=== PATIENT | female | born 1955 | race African-American/Black ===

== ENCOUNTER 2017-09-16 09:25 | Inpatient (IN) ==
[2017-09-16] MEDS ORDERED: CeFAZolin Syr 3,000MG/30 ML 3,000 MG/30 ML SYRINGE IVPB ONE (09:42)
[2017-09-16] MEDS ORDERED: Ringers Solution, Lactated 1,000 ML IVC SCH ×2 (09:45→11:30)
--- NOTE | 2017-09-16 10:02 | Anesthesia Evaluation PreOp ---
Date of Encounter: 09/16/17 Time of Encounter: 10:00 - Past History Planned Operation: SPRING Cardiac History: Denies any Significant Hx Pulmonary History: Denies Any Significant HX HEAD BONE GRINDER History: Denies Any Significant HX Other Medical History: Denies Any Significant HX Anesthesia History: No Prior Anesthetic Complications, Past Anesthesia Alcohol Use: none Drug use: none Medications and Allergies Acetaminophen with Codeine [Acetaminophen-Cod #3 Tablet] 1 tab PO TID 09/16/17 [ History] Amitriptyline [Elavil] 25 mg PO HS 09/16/17 [History] Diclofenac Sodium [Voltaren] 1 appl TP QID 09/16/17 [History] Gabapentin [Neurontin] 800 mg PO TID 09/16/17 [History] Nabumetone [Relafen] 500 mg PO BID 09/16/17 [History] Tramadol HCl [Ultram] 50 mg PO Q6H PRN 09/16/17 [History] 3 Allergy/AdvReac Type Severity Reaction Status Date / Time No Known Allergies Allergy Verified 09/16/17 09:50 - Meds/Allergy Pre-op Review Medications Reviewed: Yes Allergies Reviewed: Yes Beta Blockers on Current Med List: No Anesthesia Exam Selected Entries 09/16/17 09:47 Temperature 98.6 F Pulse Rate 98 Respiratory Rate 18 Blood Pressure 164/103 O2 Sat by Pulse Oximetry 98 Weight: 98 kg - HEENT Pupil (Motor): Pupils equal Mallampati: I Teeth: Normal Oral Opening: Greater than 3 - Cardiac Rhythm: Regular Murmur: None - Pulmonary Breath Sounds: bilateral Clear Respiratory Effort: Symmetrical Anesthesia Assess/Plan ASA Score: 2 Modified Chad Scale for Level of Consciousness: Cooperative, oriented, and tranquil Anesthetic Plan: General Monitoring Plan: Standard Monitors Recovery Plan: PACU (Discussed GA, risks. B/P unusually high today, she feels it's nerves. Patient aware of risks and potential complications. Agreed to proceed.)
--- NOTE | 2017-09-16 11:23 | History & Physical Report ---
Date of Encounter: 09/16/17 Time of Encounter: 11:23 24 Hour HP Update - Instructions Instructions: If the History and Physical is less than 30 days old and was completed prior to A.M. admission and or procedure and has NOT been updated on calendar day of procedure please complete this update prior to performing procedure. - Update Patient reports changes in Medical Condition: No Changes in examination, assessment, or condition: No Changes in Medication: No Preop tests/diagnostics Reviewed: Yes Surgery Remains Indicated: Yes Consent for Planned Operative Procedure(s) Verified: Yes - Pre-Operative Checklist Preoperative Checklist Indicated: Yes Prophylactic Antibiotic Ordered: Yes Home Medications Include Beta Pablo: No Beta Pablo Taken Today (Day of Surgery): No Beta Pablo Taken Yesterday (Day Prior to Surgery): No Is VTE Prophylaxis Indicated?: Yes
[2017-09-16] MEDS ORDERED: Naloxone 0.4 MG/ML INJ IVP PRN (11:24)
[2017-09-16] MEDS ORDERED: *HR* HYDROmorphone 2 MG/ML SYRINGE IVP PRN (11:24)
[2017-09-16] MEDS ORDERED: *HR* Succinylcholine 200 MG/10 ML VIAL IVP ONE (12:01)
[2017-09-16] MEDS ORDERED: *HR* FentaNYL (PF) 100 MCG/2 ML VIAL ONE (12:01)
[2017-09-16] MEDS ORDERED: Lidocaine -MPF 2% 2 ML VIAL ONE (12:01)
[2017-09-16] MEDS ORDERED: *HR* Midazolam HCl 2 MG/2 ML VIAL ONE (12:01)
[2017-09-16] MEDS ORDERED: Ondansetron 4 MG/2 ML VIAL ONE (12:01)
[2017-09-16] MEDS ORDERED: Dexamethasone 4 MG/ML VIAL ONE (12:01)
[2017-09-16] MEDS ORDERED: *HR* Rocuronium Bromide 50 MG/5 ML VIAL ONE (12:01)
[2017-09-16] MEDS ORDERED: *HR* Propofol 200 MG/20 ML VIAL IVP ONE (12:01)
[2017-09-16] MEDS ORDERED: Lidocaine -MPF 4% 5 ML AMPUL ONE (12:01)
[2017-09-16] MEDS ORDERED: *HR* HYDROmorphone 2 MG/ML SYRINGE ONE (12:02)
[2017-09-16] MEDS ORDERED: *HR* Labetalol 20 MG/4 ML SYRINGE IVP PRN (12:28)
[2017-09-16] MEDS ORDERED: *HR* Promethazine 25 MG/ML VIAL IVP PRN (12:28)
[2017-09-16] MEDS ORDERED: Ondansetron 4 MG/2 ML VIAL IVP ONE (12:28)
[2017-09-16] MEDS ORDERED: Neostigmine Methylsulfate 3 MG/3 ML SYRINGE ONE (13:07)
--- NOTE | 2017-09-16 13:45 | OB/GYN Procedure Note ---
OB-HAND I TUBE BENDER: Procedure - Diagnosis Date of procedure: 09/16/17 Pre-op diagnosis: fibroid uterus, pelvic pain Post-op diagnosis: same - Procedure Procedure: SPRING, BS Surgeon: Sadia Scott Was there an periodontal assistant present: Yes Shipping Lead Person: Wilmar Rodney Anesthesia Type: General Estimated blood loss (cc): 350 Fluids: crystalloid Procedure Complications: none Specimens collected: uterus, cervix and tubes Disposition: floor Findings: fibroid uterus, normal ovaries and tubes Narrative: The patient was prepped and draped in the usual sterile fashion. An incision was made into the abdomen down through the subcutaneous tissue, muscular fascia and peritoneum. Once inside the abdominal cavity, an Hosea retractor was placed to expose the pelvic cavity with 4 lap sponges. The uterus was then identified and grasped on the fundus with a double-toothed tenaculum with upward traction. The round ligaments on either side were identified and individually dissected and ligated with the Ligasure device. This allowed us to then create a bladder flap by both blunt and sharp dissection. The fallopian tube and ovarian ligament were isolated through the broad ligament from the uterine body and ligated with the Ligasure divided as well. We then skeletonized the uterine vessels on either side and carefully dissected the bladder flap anteriorly. Posteriorly, the peritoneum was dissected down toward the uterosacral ligaments. Dominga clamps were then placed at each isthmic portion of the cervical body junction where the uterine arteries adjoined the uterus. These were clamped, ligated and divided using #0 Vicryl suture. The remainder of the uterus was then removed by the [id number] technique using #0 Vicryl on all major pedicles. With removal of the uterus, the vaginal cuff was closed in the usual manner. Hemostasis was then inspected and secured throughout the entire area. The ovaries were left in situ. The lap sponges were then removed and the self-retaining retractor was removed. The patient tolerated the operation nicely. There were no complications associated with this surgical procedure to this point. The sponge count was correct times 2 at this time. Methylene blue was given and the Bradford catheter showed blue dye in the urine. Having removed all instruments and packs, we then began closure of the abdomen. The fascia was closed with #0 Vicryl in a running continuous manner and the subcutaneous tissue was also closed with #3-0 Vicryl in interrupted manner. The skin was closed with #4-0 vicryl. The patient tolerated the operation nicely and was then taken to the Recovery Room in good condition.
[2017-09-16] MEDS ORDERED: *HR* HYDROmorphone (PF) 1 MG/ML SYRINGE ONE ×2 (14:03→14:17)
[2017-09-16] MEDS: *HR* HYDROmorphone (PF) 1 MG/ML SYRINGE IVP PRN ×3 (14:05→14:25)
--- NOTE | 2017-09-16 14:42 | Anesthesia Evaluation Post Op ---
Date of Encounter: 09/16/17 Time of Encounter: 14:40 - Vital Signs Vital Signs: Vital Signs/O2 Sat/Glucose, Most Current Temp Pulse Resp BP Pulse Ox 09/16/17 14:25 98.4 F 74 16 111/84 97 09/16/17 14:15 72 16 115/86 97 09/16/17 14:05 73 16 115/82 97 09/16/17 13:55 98.2 F 66 12 118/78 98 - Lungs Lungs: Clear Ascult./Percussion - Airway Airway: Non-obstructed - Cardiovascular Regular Rate - Mental Status Mental Status: Alert & Oriented, Answers Appropriately - Pain Pain Scale: 1 - Nausea Vomiting Nausea Vomiting: Not Present - Hydration Hydration: Ice chips - Discharge PostOp Status: Transfer Patient to floor
[2017-09-16] MEDS: Gabapentin 400 MG CAPSULE PO SCH (20:16)
[2017-09-16] MEDS: *HR* OxyCODONE/APAP 5/325 TABLET PO PRN (20:16)
[2017-09-17] MEDS: *HR* OxyCODONE/APAP 5/325 TABLET PO PRN ×4 (00:38→20:30)
[2017-09-17 07:43] LABS: Basophils % 0.1 %; Eosinophils % 0.1 %; Hematocrit 33.9 % (35.3-44.9); Immature Granulocytes % 0.5 % (0-4); Immature Platelets 1.4 % (1.1-6.1); Lymphocytes # 2.4 K/mcL (0.6-4.6); Lymphocytes % 19.2 %; Mean Corpuscular HGB Conc 32.4 g/dL (31.6-35.5); Mean Corpuscular Hemoglobin 27.2 pg (28.0-33.3); Mean Corpuscular Volume 83.9 fL (83.0-100.0); Mean Platelet Volume 9.1 fL (9.4-12.4); Monocytes # 1.4 K/mcL (0.0-1.3); Monocytes % 11.1 %; Neutrophils # 8.6 K/mcL (1.6-8.9); Platelet Count 239 K/mcL (140-400); Red Blood Count 4.04 M/mcL (3.82-4.97); Red Cell Distribution Width 13.3 % (11.5-14.5)
[2017-09-17] MEDS: Gabapentin 400 MG CAPSULE PO SCH ×3 (08:07→20:30)
--- NOTE | 2017-09-17 09:42 | OB/GYN Progress Note ---
Date of Encounter: 09/17/17 Time of Encounter: 09:40 - Assessment and Plan (1) Status post hysterectomy Current Visit: Yes Status: Acute status post hysterectomy, POD#1, patient doing well, ambulating, good urine output, tolerating PO intake, pain is under control, cont current inpt care Subjective - Subjective Patient reports: appetite normal, voiding normally, pain well controlled, ambulating normally Objective - Vital Signs Latest vital signs: Vital Signs Temp Pulse Pulse Resp BP Pulse Ox 09/17/17 04:30 97.8 F 79 16 119/80 96 09/17/17 00:15 97.8 F 82 16 121/79 98 09/16/17 19:50 97.5 F L 80 16 115/82 97 09/16/17 18:25 97.7 F 83 16 109/75 09/16/17 18:15 97.7 F 83 16 109/75 09/16/17 17:15 97.8 F 83 16 106/74 94 09/16/17 16:45 97.4 F L 80 80 16 129/89 94 09/16/17 15:45 97.6 F 78 80 16 124/90 98 09/16/17 15:15 97.5 F L 76 12 119/89 95 09/16/17 14:55 97.6 F 74 16 124/97 98 09/16/17 14:45 77 16 126/87 97 09/16/17 14:35 75 16 118/91 97 09/16/17 14:25 98.4 F 74 16 111/84 97 09/16/17 14:15 72 16 115/86 97 09/16/17 14:05 73 16 115/82 97 09/16/17 13:55 98.2 F 66 12 118/78 98 09/16/17 09:47 98.6 F 98 18 164/103 98 09/16/17 09:42 98.6 F 98 18 164/103 98 Intake and Output 09/16/17 09/17/17 09/17/17 23:59 07:59 15:59 Intake Total 900 / 900 500 / 500 Output Total 375 / 375 2024 Balance 525 / 525 -1525 / -1525 Intake: Oral 900 / 900 500 / 500 Output: Catheter 375 / 375 2024 Other: Weight 100.244 kg Patient Weight 09/17/17 23:59 Weight 100.244 kg - I&O's I&O's: Intake & Output 09/14/17 09/15/17 09/16/17 09/17/17 23:59 23:59 23:59 23:59 Intake Total 930 / 930 500 / 500 Output Total 725 / 725 2024 Balance 205 / 205 -1525 / -1525 Weight 98.883 kg 100.244 kg - Exam Lungs: bilateral: normal Chest: Normal S1, Normal S2 Extremities: Present: normal Abdomen: Present: soft Incision OB: Present: normal - Labs Labs: Abnormal lab results WBC 12.4 K/mcL (4.3-11.1) H D 09/17/17 07:17 Hgb 11.0 g/dL (11.5-15.4) L D 09/17/17 07:17 Hct 33.9 % (35.3-44.9) L 09/17/17 07:17 MCH 27.2 pg (28.0-33.3) L 09/17/17 07:17 MPV 9.1 fL (9.4-12.4) L 09/17/17 07:17 Monocytes # 1.4 K/mcL (0.0-1.3) H 09/17/17 07:17 Consult Discharge Plan - Plan Referrals: Yi Ambriz DO [Primary Care Provider] -
[2017-09-17] MEDS: Ibuprofen 600 MG TABLET PO PRN ×2 (15:35→23:21)
[2017-09-18] MEDS: *HR* OxyCODONE/APAP 5/325 TABLET PO PRN ×3 (03:00→16:13)
[2017-09-18] MEDS: Gabapentin 400 MG CAPSULE PO SCH (09:45)
--- NOTE | 2017-09-18 12:08 | Discharge Summary ---
Date of Encounter: 09/18/17 Time of Encounter: 12:08 - Discharge Diagnosis (1) Status post hysterectomy Priority: Primary Status: Acute Comments: s/p SPRING for fibroids, POD#2, doing well, ok for discharge - Discharge Medications Home Medications: Acetaminophen with Codeine [Acetaminophen-Cod #3 Tablet] 1 tab PO TID 09/16/17 [ History] Amitriptyline [Elavil] 25 mg PO HS 09/16/17 [History] Diclofenac Sodium [Voltaren] 1 appl TP QID 09/16/17 [History] Gabapentin [Neurontin] 800 mg PO TID 09/16/17 [History] Nabumetone [Relafen] 500 mg PO BID 09/16/17 [History] Tramadol HCl [Ultram] 50 mg PO Q6H PRN 09/16/17 [History] Allergies/Adverse Reactions: 3 Allergy/AdvReac Type Severity Reaction Status Date / Time No Known Allergies Allergy Verified 09/16/17 09:50 Data Procedures and tests throughout hospitalization: Laboratory Tests 09/17/17 09/17/17 04:28 07:17 WBC 12.4 H D RBC 4.04 Hgb 11.0 L D Hct 33.9 L MCV 83.9 MCH 27.2 L MCHC 32.4 RDW 13.3 Plt Count 239 MPV 9.1 L Immature Gran % 0.5 Seg Neutrophils % 69.0 Lymphocytes % 19.2 Monocytes % 11.1 Eosinophils % 0.1 Basophils % 0.1 Neutrophils # 8.6 Lymphocytes # 2.4 Monocytes # 1.4 H Eosinophils # 0.0 Basophils # 0.0 Immature Plt Fraction 1.4 Specimen Rejected Clotted Date of admission: 09/16/17 14:37 Primary care physician: Yi Ambriz DO - Patient Status Disposition: Home, Self-Care Condition: Good Functional capacity at discharge: independent ambulation Overall status at discharge: patient is progressing back to baseline - Discharge Instructions Follow Up With: Yi Ambriz DO [Primary Care Provider] - Additional Instructions: There are many types of gynecologic surgery. Below, you will find groups of instructions related to caring for yourself after your procedure. there may be instructions that do not apply to you depending on the procedure that you had. Before you go home, your nurse will explain these instructions and let you know any special instructions that you may have. MEDICATIONS: -Continue taking your home medications as prescribed by your doctor prior to surgery. You will be notified of any changes in home medications before leaving the hospital. -A prescription for pain medication may be given to you. Take it as directed. It is important to control your pain during recovery. -Do not stop taking antibiotics if they were prescribed for you. Take them until they are all gone. Antibiotics are sometimes used to prevent infection after surgery. BOWEL MOVEMENTS: -You may not have a bowel movement for a few days after surgery. The first one may be difficult to pass. Do not strain in order to go, and allow yourself plenty of time when going for the first time following your surgery. -To help soften your stool, eat a diet high in fiber. This includes foods such as cereals, whole grain breads and vegetables. You can also take a fiber supplement or stool softeners, which your provider may prescribe for you. DIET: -Your appetite may be decreased following surgery. You will be eating regular food before you are discharged from the hospital. Start out with small amounts of food and increase your meals as you are able to tolerate them without feeling nauseated. -Eat healthy foods to help you heal more quickly and increase your energy. Avoid foods that cause gas, as this will make you feel uncomfortable. -Drink 6-8 glasses of water each day. SMOKING: -Smoking increases your chances of post-surgical complications. It is never too late to quit. Ask your nurse or provider for information to help you quit smoking. ACTIVITY: -Restrict yourself to light activity and increase your activity level slowly, resting frequently. -Be aware your pain medication may cause drowsiness. -It usually takes 4-8 weeks for the body to heal. -You may walk slowly. Limit stair climbing. Do not exercise until the provider tells you it is safe to do so. -No douching, tampons or sex for 6 weeks. This will allow time for healing. You can no longer get after having a hysterectomy but will still need to protect yourself from sexually transmitted diseases. -Lift nothing heavier than 10-15 pounds for 2 weeks. -You can drive in about 2 weeks, unless otherwise instructed by your provider. -You can expect to return to work or school and other normal activities in about 6 weeks or as directed by your provider. -When you get home, you may shower normally. If you have an incision, wash the area with soap and water and dry thoroughly after showering. You may have steri -strips (thin strips of tape used to help hold the incision together while it heals). If these are present, do not remove them. Keep the area of your incision clean and dry. STRESS AND MOOD -A hysterectomy may change the way that you view yourself. These are normal feelings. Talk to your family and health care provider about these feelings. If you feel depressed, seek counseling or talk to your provider about treatment options. It is important in the healing process to have a healthy mind. WHEN TO CALL THE DOCTOR: -If your stitches are swollen, red or have drainage coming from them or if you notice them coming apart. It is normal for your incision to feel numb up to a year. -If you are having chills, fever or a reaction to your medicine. -If your incision is bleeding or you have increased pain in your incision. -If within an hour you have soaked a sanitary pad with vaginal bleeding. -If you are unable to urinate or it has been 4-6 hours since you have urinated. Also, if you have burning with urination or feel like you cant completely empty your bladder; call your provider for further instructions. -If you have a smelly discharge coming from your incision or vagina. -If you have any questions about your surgery or medications. If you have difficulty breathing, chest pain, uncontrolled bleeding or any other emergency, call 911 or report to the nearest emergency department immediately. Hospital Course [employer] Time Attestation: Total time spent providing and/or coordinating discharge services: Exam - Constitutional Vitals: Temp Pulse Resp BP Pulse Ox 98.1 F 104 16 117/82 97 09/18/17 09:30 09/18/17 09:30 09/18/17 09:30 09/18/17 09:30 09/18/17 09:30 General appearance IM: A&O X 3 - Respiratory Respiratory exam: Present: CTAB - Cardiovascular Cardiovascular exam IM: Present: RRR - GI/Abdominal GI/Abdominal exam IM: normal bowel sounds Incision: normal - VTE Documentation of Mechanical Device: Intermittent pneumatic compression device
[2017-09-18 16:53] VITALS: BP 115/63
== END 2017-09-18 16:30 | disposition home or self-care (01) | DRG 519 ==
LOC: SAMDAY 09:25 → 1NENUOBS 14:37
PROVIDERS: ADMIT Student in an Organized Health Care Education/Training Program; ATTEND Student in an Organized Health Care Education/Training Program

== ENCOUNTER 2020-02-28 19:23 | Observation (INO) ==
[2020-02-28 19:41] LABS: Basophils # 0.1 K/mcL (0.0-0.2); Basophils % 0.4 %; Eosinophils # 0.2 K/mcL (0.0-0.6); Eosinophils % 1.4 %; Hematocrit 38.2 % (35.3-44.9); Hemoglobin 12.1 g/dL (11.5-15.4); Immature Granulocytes % 0.3 % (0-4); Lymphocytes # 3.2 K/mcL (0.6-4.6); Lymphocytes % 26.7 %; Mean Corpuscular HGB Conc 31.7 g/dL (31.6-35.5); Mean Corpuscular Hemoglobin 26.7 pg (28.0-33.3); Mean Corpuscular Volume 84.3 fL (83.0-100.0); Mean Platelet Volume 8.7 fL (9.4-12.4); Monocytes # 0.9 K/mcL (0.0-1.3); Monocytes % 7.3 %; Neutrophils # 7.7 K/mcL (1.6-8.9); Platelet Count 248 K/mcL (140-400); Red Blood Count 4.53 M/mcL (3.82-4.97); Red Cell Distribution Width 14.3 % (11.5-14.5); Segmented Neutrophils % 63.9 %; White Blood Count 12.1 K/mcL (4.3-11.1)
[2020-02-28 19:48] LABS: Prothrombin Time 11.2 Seconds (9.4-12.1)
[2020-02-28 19:50] LABS: Activated Partial Thrombo Time 34.6 Seconds (26.0-36.0)
[2020-02-28] MEDS ORDERED: Isovue-370 500 ML BOTTLE IVP ONE (20:29)
[2020-02-28 21:03] LABS: Albumin 4.3 g/dL (3.5-5.7); Albumin/Globulin Ratio 1.3 (1.1-2.2); Bilirubin,Total 0.2 mg/dL (0.3-1.0); Calcium 9.7 mg/dL (8.6-10.3); Globulin 3.3 g/dL (2.4-3.5); Potassium 3.8 mEq/L (3.5-5.1); Total Protein 7.6 g/dL (6.4-8.9)
[2020-02-28 22:48] LABS: Bilirubin,Urine Negative (Negative); Blood,Urine Negative (Negative); Clarity,Urine Clear (Clear); Color,Urine Light-Yellow (Yellow); Glucose,Urine (UA) Normal (Normal); Hyaline Casts,Urine Few per lpf (None Seen); Ketones,Urine Negative (Negative); Leukocyte Esterase,Urine Moderate (Negative); Nitrite,Urine Negative (Negative); Protein,Urine Negative (Neg-Trace); RBC,Urine 0-3 per hpf (0-3); Squamous Epithelial Cell,Urine Few per hpf (None-Few); Urobilinogen,Urine Normal (Normal)
[2020-02-28] MEDS ORDERED: Ondansetron 4 MG/2 ML VIAL IVP PRN (22:54)
[2020-02-28] MEDS ORDERED: Acetaminophen 325 MG TABLET PO PRN (22:54)
[2020-02-28] MEDS ORDERED: Naloxone 0.4 MG/ML INJ IVP PRN (22:54)
[2020-02-28 22:55] LABS: Amphetamine Screen,Urine Negative ng/mL (Cutoff=1000); Barbiturate Screen,Urine Negative ng/mL (Cutoff=200); Benzodiazepines Screen,Urine Negative ng/mL (Cutoff=200); Cannabinoid Screen,Urine Negative ng/mL (Cutoff = 50); Cocaine Screen,Urine Negative ng/mL (Cutoff= 300); Opiate Screen,Urine Negative ng/mL (Cutoff=300); Phencyclidine Screen,Urine Negative ng/mL (Cutoff=25)
[2020-02-28] MEDS ORDERED: 0.9 % Sodium Chloride 1,000 ML IVC SCH (23:00)
[2020-02-28] MEDS ORDERED: Aspirin Enteric Coated 325 MG Tablet PO ONE (23:30)
[2020-02-28] MEDS: *HR* Heparin 5,000 UNIT/ML VIAL SQ SCH (23:41)
[2020-02-29] MEDS ORDERED: cefTRIAXone 1,000 MG in 0.9 % Sodium Chloride Mini Bag 100 ML IVPB SCH (00:04)
[2020-02-29] MEDS ORDERED: 0.9 % Sodium Chloride Mini Bag 100 ML ONE (00:20)
[2020-02-29] MEDS: cefTRIAXone 1,000 MG in Water for inj. (sterile) 10 ML IVPB SCH (00:35)
[2020-02-29 01:52] LABS: Basophils % 0.3 %; Eosinophils # 0.1 K/mcL (0.0-0.6); Eosinophils % 1.5 %; Hematocrit 35.5 % (35.3-44.9); Hemoglobin 11.4 g/dL (11.5-15.4); Immature Granulocytes % 0.4 % (0-4); Lymphocytes % 30.7 %; Mean Corpuscular HGB Conc 32.1 g/dL (31.6-35.5); Mean Corpuscular Hemoglobin 27.3 pg (28.0-33.3); Mean Corpuscular Volume 84.9 fL (83.0-100.0); Monocytes # 0.8 K/mcL (0.0-1.3); Neutrophils # 5.7 K/mcL (1.6-8.9); Platelet Count 232 K/mcL (140-400); Red Blood Count 4.18 M/mcL (3.82-4.97); Red Cell Distribution Width 14.4 % (11.5-14.5); Segmented Neutrophils % 59.1 %; White Blood Count 9.6 K/mcL (4.3-11.1)
[2020-02-29 01:57] LABS: Prothrombin Time 11.8 Seconds (9.4-12.1)
[2020-02-29 02:00] LABS: Activated Partial Thrombo Time 37.4 Seconds (26.0-36.0)
[2020-02-29 02:19] LABS: Alanine Aminotransferase 15 Units/L (7-52); Albumin/Globulin Ratio 1.3 (1.1-2.2); Alkaline Phosphatase 93 Units/L (34-104); Aspartate Amino Transferase 15 Units/L (13-39); BUN/Creatinine Ratio 11 (6-26); Bilirubin,Total 0.3 mg/dL (0.3-1.0); Blood Urea Nitrogen 12 mg/dL (8-23); Calcium 9.2 mg/dL (8.6-10.3); Carbon Dioxide 24 mEq/L (23-29); Chloride 104 mEq/L (98-107); Chol/HDL Ratio 1.7 (0-4.9); Cholesterol 208 mg/dL (< 200); Globulin 3.2 g/dL (2.4-3.5); Glucose 112 mg/dL (70-105); HDL Cholesterol 124 mg/dL (40-59); LDL Cholesterol,Calculated 78 mg/dL (0-99); Osmolality,Calculated 289 (280-300); Potassium 3.7 mEq/L (3.5-5.1); Sodium 139 mEq/L (136-145); Total Protein 7.2 g/dL (6.4-8.9); Triglycerides 30 mg/dL (< 150); eGFR For African Americans > 60 (> 60); eGFR For Non-African Americans 51 (> 60)
[2020-02-29 02:38] LABS: Folate 13.2 ng/mL (3.0-16.0)
[2020-02-29] MEDS: *HR* Heparin 5,000 UNIT/ML VIAL SQ SCH ×3 (05:50→21:29)
[2020-02-29 10:44] LABS: Estimated Average Glucose 151 mg/dl
[2020-02-29] MEDS ORDERED: Dextrose Gel 15 GM/37.5 ML TUBE PO PRN ×2 (14:12)
[2020-02-29] MEDS ORDERED: *HR* Dextrose 50 % in Water (Vial) 50 ML VIAL IVP PRN (14:12)
[2020-02-29] MEDS ORDERED: D5% in Water 1,000 ML IVC PRN (14:12)
[2020-02-29] MEDS: Insulin LISPRO 300 UNITS/3 ML VIAL SQ SCH (16:49)
[2020-03-01 02:40] LABS: Hematocrit 37.7 % (35.3-44.9); Hemoglobin 11.7 g/dL (11.5-15.4); Mean Corpuscular Hemoglobin 26.4 pg (28.0-33.3); Mean Corpuscular Volume 84.9 fL (83.0-100.0); Mean Platelet Volume 8.7 fL (9.4-12.4); Platelet Count 234 K/mcL (140-400); Red Blood Count 4.44 M/mcL (3.82-4.97); Red Cell Distribution Width 14.4 % (11.5-14.5); White Blood Count 7.7 K/mcL (4.3-11.1)
[2020-03-01] MEDS: cefTRIAXone 1,000 MG in Water for inj. (sterile) 10 ML IVPB SCH (02:55)
[2020-03-01 02:58] LABS: BUN/Creatinine Ratio 10 (6-26); Blood Urea Nitrogen 10 mg/dL (8-23); Calcium 9.3 mg/dL (8.6-10.3); Carbon Dioxide 24 mEq/L (23-29); Chloride 107 mEq/L (98-107); Glucose 103 mg/dL (70-105); Osmolality,Calculated 287 (280-300); Sodium 139 mEq/L (136-145); eGFR For African Americans > 60 (> 60); eGFR For Non-African Americans 56 (> 60)
[2020-03-01] MEDS ORDERED: CefTRIAXone 1,000 MG VIAL ONE (02:59)
[2020-03-01] MEDS: *HR* Heparin 5,000 UNIT/ML VIAL SQ SCH (05:31)
[2020-03-01] MEDS: Insulin LISPRO 300 UNITS/3 ML VIAL SQ SCH ×2 (08:03→12:45)
[2020-03-01 11:26] VITALS: BP 120/85
== END 2020-03-01 14:22 | disposition home or self-care (01) ==
LOC: EMEROOARM 19:23 → 3BNU 19:23 → SUATTDRO 22:43 → 3BNU 23:00
PROVIDERS: ADMIT Student in an Organized Health Care Education/Training Program; ATTEND Internal Medicine

== ENCOUNTER 2020-08-19 07:24 | Observation (INO) ==
[2020-08-19 08:10] LABS: Basophils % 0.3 %; Eosinophils # 0.3 K/mcL (0.0-0.6); Eosinophils % 2.7 %; Hematocrit 38.5 % (35.3-44.9); Hemoglobin 11.9 g/dL (11.5-15.4); Immature Granulocytes % 0.4 % (0-4); Lymphocytes # 1.8 K/mcL (0.6-4.6); Mean Corpuscular HGB Conc 30.9 g/dL (31.6-35.5); Mean Corpuscular Hemoglobin 26.9 pg (28.0-33.3); Mean Corpuscular Volume 86.9 fL (83.0-100.0); Mean Platelet Volume 8.9 fL (9.4-12.4); Monocytes # 0.7 K/mcL (0.0-1.3); Monocytes % 7.5 %; Neutrophils # 6.5 K/mcL (1.6-8.9); Platelet Count 240 K/mcL (140-400); Red Blood Count 4.43 M/mcL (3.82-4.97); Red Cell Distribution Width 13.3 % (11.5-14.5); Segmented Neutrophils % 70.1 %; White Blood Count 9.3 K/mcL (4.3-11.1)
[2020-08-19 08:15] LABS: Prothrombin Time 11.7 Seconds (9.4-12.1)
[2020-08-19 08:56] LABS: BUN/Creatinine Ratio 10 (6-26); Blood Urea Nitrogen 11 mg/dL (8-23); Calcium 9.7 mg/dL (8.6-10.3); Carbon Dioxide 26 mEq/L (23-29); Chloride 105 mEq/L (98-107); Glucose 103 mg/dL (70-105); Osmolality,Calculated 288 (280-300); Potassium 4.2 mEq/L (3.5-5.1); Sodium 139 mEq/L (136-145); Troponin I < 0.03 ng/mL (< 0.04); eGFR For African Americans > 60 (> 60); eGFR For Non-African Americans 50 (> 60)
[2020-08-19 09:34] LABS: Bilirubin,Urine Negative (Negative); Blood,Urine Negative (Negative); Clarity,Urine Clear (Clear); Color,Urine Light-Yellow (Yellow); Glucose,Urine (UA) Normal (Normal); Hyaline Casts,Urine Few per lpf (None Seen); Ketones,Urine Negative (Negative); Leukocyte Esterase,Urine Small (Negative); Mucus,Urine Few per lpf (None-Few); Nitrite,Urine Negative (Negative); PH,Urine 6.5 pH Units (5.0-8.0); Protein,Urine Negative (Neg-Trace); RBC,Urine 0-3 per hpf (0-3); Squamous Epithelial Cell,Urine Few per hpf (None-Few); Urobilinogen,Urine Normal (Normal); WBC,Urine 0-3 per hpf (0-3)
[2020-08-19 10:17] LABS: Ethanol < 10 mg/dL (Less than 10)
[2020-08-19 11:08] LABS: Amphetamine Screen,Urine Negative ng/mL (Cutoff=1000); Barbiturate Screen,Urine Negative ng/mL (Cutoff=200); Benzodiazepines Screen,Urine Negative ng/mL (Cutoff=200); Cannabinoid Screen,Urine Negative ng/mL (Cutoff = 50); Cocaine Screen,Urine Negative ng/mL (Cutoff= 300); Opiate Screen,Urine Negative ng/mL (Cutoff=300); Phencyclidine Screen,Urine Negative ng/mL (Cutoff=25)
[2020-08-19] MEDS ORDERED: Naloxone 0.4 MG/ML INJ IVP PRN (11:31)
[2020-08-19] MEDS ORDERED: Dextrose Gel 15 GM/37.5 ML TUBE PO PRN ×2 (11:32)
[2020-08-19] MEDS ORDERED: D5% in Water 1,000 ML IVC PRN (11:32)
[2020-08-19] MEDS ORDERED: *HR* Dextrose 50 % in Water (Vial) 50 ML VIAL IVP PRN (11:32)
[2020-08-19 11:41] VITALS: BP 120/89
[2020-08-19] MEDS ORDERED: Insulin LISPRO 300 UNITS/3 ML VIAL SQ SCH ×2 (11:45→21:00)
== END 2020-08-19 15:04 | disposition home or self-care (01) ==
LOC: EMEROOARM 07:24 → 3BNU 07:24 → 2ANU 11:29
PROVIDERS: ADMIT Internal Medicine; ATTEND Internal Medicine